=== PATIENT | male | born 1960 | race African-American/Black ===

== ENCOUNTER 2017-05-05 10:58 | Emergency (ER) | payer SELFPAY ==
[~2017-05-05] VITALS: Ht 167.6 cm; Wt 85.0 kg
[2017-05-05 11:00] VITALS: BP 132/90
[2017-05-05] MEDS ORDERED: TETANUS, DIPHTHERIA, PERTUSSIS VAC/PF 0.5ML (>7YR OLD) IM ONE (11:15)
== END 2017-05-05 13:59 | disposition home or self-care (01) ==
LOC: ER 10:58
DX: T23.272A Burn of second degree of left wrist, initial encounter (principal); T31.0 Burns involving less than 10% of body surface; X11.8XXA Contact with other hot tap-water, initial encounter; Y93.89 Activity, other specified; Y92.89 Other specified places as the place of occurrence of the external cause; Y99.8 Other external cause status; Z23 Encounter for immunization
CPT/HCPCS: 90471; 90715; 99283; Z7610